=== PATIENT | female | born 1990 | race Caucasian/White ===

== ENCOUNTER 2018-01-08 08:35 | Inpatient (IN) | payer BC ==
[2018-01-08] VITALS (20 sets, daily range): BP systolic 107–137; BP diastolic 58–80
[~2018-01-08] VITALS: Ht 162.6 cm; Wt 67.1 kg
[~2018-01-08 08:35] MED LIST: LUTERA1 EAC1; ZANTAC150 MG PO; ZOFRAN4 MG PO
[2018-01-08] MEDS ORDERED: PRENATAL TABLE1 EAC3 PO (09:08)
[2018-01-08] MEDS ORDERED: IRON18 MG PO (09:09)
[2018-01-08 10:05] LABS: BASOPHIL (%) 0.3 % (0-1); BASOPHIL COUNT 0.1 K/uL (0-0.1); EOSINOPHIL (%) 0.1 % (0-5); HEMATOCRIT 33.9 % (36.0-46.0); HEMOGLOBIN 11.9 G/DL (11.9-15.5); IMMATURE GRANULOCYTE (%) 1.1 % (0.0-0.7); LYMPHOCYTE (%) 12.5 % (15-42); LYMPHOCYTE COUNT 2.1 K/uL (1.0-2.8); MCH 31.4 PG (29.0-34.0); MCHC 35.1 G/DL (30.0-36.0); MCV 89.4 FL (83-99); MONOCYTE (%) 5.3 % (3-12); MONOCYTE COUNT 0.9 K/uL (0-0.8); NEUTROPHIL (%) 80.7 % (45-76); NEUTROPHIL COUNT 13.4 K/uL (1.8-6.4); PLATELET COUNT 244 K/uL (156-360); RBC DIS.WIDTH-CV 12.4 % (11.8-14.6); RBC DIS.WIDTH-SD 40.6 % (39-53); RED BLOOD COUNT 3.79 M/uL (3.80-5.20); WHITE BLOOD COUNT 16.7 K/uL (4.1-10.2)
[2018-01-08 11:33] LABS: AMPHETAMINE NEGATIVE (500 ng/mL); BARBITURATES NEGATIVE (200 ng/mL); BENZODIAZEPINES NEGATIVE (150 ng/mL); BUPRENORPHINE NEGATIVE (10 ng/mL); COCAINE NEGATIVE (150 ng/mL); METHADONE NEGATIVE (200 ng/mL); METHAMPHETAMINE NEGATIVE (500 ng/mL); OPIATES (MORPHINE) NEGATIVE (100 ng/mL); OXYCODONE NEGATIVE (100 ng/mL); PHENCYCLIDINE NEGATIVE (25 ng/mL); PROPOXYPHENE NEGATIVE (300 ng/mL); THC CANNABINOIDS NEGATIVE (50 ng/mL); TRICYCLIC ANTIDEPRESSANTS NEGATIVE (300 ng/mL)
[2018-01-09] VITALS (14 sets, daily range): BP systolic 106–162; BP diastolic 55–80
[2018-01-09] MEDS ORDERED: IBUPROFEN800 MG PO (03:46)
[2018-01-10 07:36] VITALS: BP 116/80
== END 2018-01-10 13:00 | disposition home or self-care (01) | DRG 775 ==
LOC: LDRP-OP 08:35 → 2WEST 08:36 → LDRP-OP 02-12 09:36
PROVIDERS: Midwife
DX: O42.12 Full-term premature rupture of membranes, onset of labor more than 24 hours following rupture (principal); O99.344 Other mental disorders complicating childbirth; O69.2XX1 Labor and delivery complicated by other cord entanglement, with compression, fetus 1; F41.9 Anxiety disorder, unspecified; Z37.0 Single live birth; Z3A.39 39 weeks gestation of pregnancy; Z87.442 Personal history of urinary calculi
CPT/HCPCS: 85025; C1755; G0378; J2795; J3010; J7120